=== PATIENT | male | born 1995 | race Caucasian/White ===

== ENCOUNTER 2021-01-23 16:18 | Inpatient (IN) ==
[2021-01-23] MEDS ORDERED: levETIRAcetam 1000MG IVPREMIX 1,000 MG/100 ML BAG IVPB ONE ×2 (16:39→17:20)
[2021-01-23] MEDS ORDERED: LORazepam 2 mg VIAL 1 ml ONE (16:45)
[2021-01-23] MEDS ORDERED: LORazepam 2 mg VIAL 1 ml IV PUSH ONE (16:46)
[2021-01-23 17:09] LABS: ABS Eosinophils 0.1 10^3/ul (0-0.6); ABS Lymphocytes 0.8 10^3/ul (1.0-4.8); ABS Monocytes 0.6 10^3/ul (0-0.8); Hematocrit 43 % (42-52); Hemoglobin 14.8 g/dL (14.0-18.0); Lymphocyte % 10.5 %; Mean Corpuscular HGB Conc 34 g/dL (31-36); Mean Corpuscular Hemoglobin 31 pg (27-31); Mean Corpuscular Volume 89 fL (80-94); Mean Platelet Volume 9.1 fL (7.4-10.4); Nucleated Red Blood Cells % 0.1; Platelet Count 168 10^3/uL (150-450); Red Blood Count 4.85 10^6 /uL (4.18-5.48); Red Cell Distribution Width 13 % (10-15); White Blood Count 7.6 10^3/uL (3.5-10.8)
[2021-01-23 17:32] LABS: Albumin 4.4 g/dL (3.2-5.2); Albumin/Globulin Ratio 1.8 (1-3); Calcium 8.7 mg/dL (8.6-10.3); EGFR African American 122.3 (>60); EGFR Non-African American 101.1 (>60); Globulin 2.5 g/dL (2-4); Magnesium 1.9 mg/dL (1.9-2.7); Potassium 4.3 mmol/L (3.5-5.0); Total Bilirubin 0.5 mg/dL (0.2-1.0); Total Protein 6.9 g/dL (6.4-8.9)
[2021-01-23 17:39] LABS: INR 1.06 (0.86-1.15)
[2021-01-23 21:24] LABS: C Reactive Protein 2.84 mg/L (<8.01)
[2021-01-23 21:25] LABS: Rapid COVID-19 Molecular Undetected (Undetected)
[2021-01-23 21:55] LABS: Prolactin 14.8 ng/mL (1.0-20.0)
[2021-01-23] MEDS: Enoxaparin 40 MG/0.4 ML SYR SUBCUT SCH (22:56)
[2021-01-23] MEDS ORDERED: LORazepam 2 mg VIAL 1 ml IV PUSH PRN (23:17)
[2021-01-23] MEDS ORDERED: Lorazepam PYXIS KEY PRN (23:17)
[2021-01-24 06:24] LABS: ABS Eosinophils 0.2 10^3/ul (0-0.6); ABS Lymphocytes 1.8 10^3/ul (1.0-4.8); ABS Monocytes 0.6 10^3/ul (0-0.8); ABS Neutrophils 2.9 10^3/ul (1.5-7.7); Eosinophil % 3.9 %; Hematocrit 43 % (42-52); Hemoglobin 14.5 g/dL (14.0-18.0); Lymphocyte % 32.4 %; Mean Corpuscular HGB Conc 34 g/dL (31-36); Mean Corpuscular Hemoglobin 30 pg (27-31); Mean Corpuscular Volume 90 fL (80-94); Mean Platelet Volume 9.3 fL (7.4-10.4); Nucleated Red Blood Cells % 0.1; Platelet Count 165 10^3/uL (150-450); Red Blood Count 4.76 10^6 /uL (4.18-5.48); Red Cell Distribution Width 14 % (10-15); White Blood Count 5.5 10^3/uL (3.5-10.8)
[2021-01-24 06:41] LABS: Calcium 8.5 mg/dL (8.6-10.3); EGFR African American 117.9 (>60); EGFR Non-African American 97.4 (>60); Potassium 3.5 mmol/L (3.5-5.0)
[2021-01-24] MEDS ORDERED: Nicotine GUM 2MG FRUIT FLAVOR PO PRN (14:45)
[2021-01-24 15:53] LABS: TSH Ultra Thyroid Stim Horm 0.51 mcIU/mL (0.34-5.60)
[2021-01-24] MEDS: Nicotine PATCH 14 MG/24 HR PATCH TRANSDERM SCH (16:12)
[2021-01-24 18:16] LABS: Urine Appearance Clear; Urine Bilirubin Negative (Negative); Urine Blood Negative (Negative); Urine Color Yellow; Urine Glucose Negative (Negative); Urine Ketones Negative (Negative); Urine Nitrite Negative (Negative); Urine Protein Negative (Negative); Urine Specific Gravity 1.011 (1.002-1.030); Urine Urobilinogen Negative (Negative)
[2021-01-24] MEDS ORDERED: diPHENhydraMINE 25 mg TAB PO ONE (20:47)
[2021-01-24] MEDS: Enoxaparin 40 MG/0.4 ML SYR SUBCUT SCH (21:25)
[2021-01-25 02:45] LABS: ABS Eosinophils 0.2 10^3/ul (0-0.6); ABS Lymphocytes 2.4 10^3/ul (1.0-4.8); ABS Monocytes 0.7 10^3/ul (0-0.8); ABS Neutrophils 1.9 10^3/ul (1.5-7.7); Eosinophil % 4.3 %; Hematocrit 44 % (42-52); Hemoglobin 14.8 g/dL (14.0-18.0); Lymphocyte % 45.7 %; Mean Corpuscular HGB Conc 33 g/dL (31-36); Mean Corpuscular Hemoglobin 30 pg (27-31); Mean Corpuscular Volume 91 fL (80-94); Mean Platelet Volume 9.4 fL (7.4-10.4); Nucleated Red Blood Cells % 0.1; Platelet Count 159 10^3/uL (150-450); Red Cell Distribution Width 14 % (10-15); White Blood Count 5.1 10^3/uL (3.5-10.8)
[2021-01-25 02:53] LABS: Albumin 4.1 g/dL (3.2-5.2); Calcium 8.7 mg/dL (8.6-10.3); Magnesium 1.9 mg/dL (1.9-2.7); Total Bilirubin 0.2 mg/dL (0.2-1.0)
[2021-01-25 02:58] LABS: Albumin/Globulin Ratio 1.6 (1-3); EGFR African American 120.8 (>60); EGFR Non-African American 99.8 (>60); Globulin 2.6 g/dL (2-4); Total Protein 6.7 g/dL (6.4-8.9)
[2021-01-25 03:19] LABS: Prolactin 19.8 ng/mL (1.0-20.0)
[2021-01-25 06:50] LABS: Hematocrit 42 % (42-52); Hemoglobin 14.3 g/dL (14.0-18.0); Mean Corpuscular HGB Conc 34 g/dL (31-36); Mean Corpuscular Hemoglobin 31 pg (27-31); Mean Corpuscular Volume 90 fL (80-94); Mean Platelet Volume 9.1 fL (7.4-10.4); Platelet Count 159 10^3/uL (150-450); Red Blood Count 4.68 10^6 /uL (4.18-5.48); Red Cell Distribution Width 14 % (10-15); White Blood Count 4.5 10^3/uL (3.5-10.8)
[2021-01-25 07:09] LABS: Calcium 8.5 mg/dL (8.6-10.3); EGFR African American 128.7 (>60); EGFR Non-African American 106.4 (>60); Magnesium 1.9 mg/dL (1.9-2.7); Potassium 3.7 mmol/L (3.5-5.0)
[2021-01-25] MEDS: Nicotine PATCH 14 MG/24 HR PATCH TRANSDERM SCH ×2 (08:51→08:52)
[2021-01-25] MEDS ORDERED: LORazepam 2 mg VIAL 1 ml IV PUSH ONE (13:00)
[2021-01-25] MEDS: Enoxaparin 40 MG/0.4 ML SYR SUBCUT SCH (20:42)
[2021-01-26] MEDS: Nicotine PATCH 14 MG/24 HR PATCH TRANSDERM SCH (08:31)
[2021-01-26] MEDS: Enoxaparin 40 MG/0.4 ML SYR SUBCUT SCH (21:08)
[2021-01-27] MEDS: Nicotine PATCH 14 MG/24 HR PATCH TRANSDERM SCH (08:17)
[2021-01-27] MEDS: Enoxaparin 40 MG/0.4 ML SYR SUBCUT SCH (20:07)
[2021-01-28] MEDS: Nicotine PATCH 14 MG/24 HR PATCH TRANSDERM SCH (07:21)
[2021-01-28 12:04] VITALS: BP 121/70
[2021-01-28 13:07] LABS: Calcium 9.1 mg/dL (8.6-10.3); Magnesium 1.8 mg/dL (1.9-2.7); Potassium 4.2 mmol/L (3.5-5.0)
[2021-01-28 13:13] LABS: EGFR African American 118.3 (>60); EGFR Non-African American 97.8 (>60)
[2021-01-29 08:59] LABS: Albumin 3.3 g/dL (3.4-4.7); Albumin/Globulin Ratio 1.24; Gamma Globulin 0.9 g/dL (0.6-1.6)
[2021-01-31 14:19] LABS: Asialo GM1 IgG Antibody Negative (Negative); Asialo GM1 IgM Antibody Negative (Negative); Disialo GD1b IgG Antibody Negative (Negative); Disialo GD1b IgM Antibody Negative (Negative); Monosialo GM1 IgG Antibody Negative (Negative); Monosialo GM1 IgM Antibody Negative (Negative)
== END 2021-01-28 14:50 | disposition home or self-care (01) | DRG 880 ==
LOC: ED 16:18 → MED 16:18 → SUATTDRO 20:26 → OBSVTOIN 20:26
PROVIDERS: ADMIT Internal Medicine; ATTEND Internal Medicine